=== PATIENT | female | born 1980 | race African-American/Black ===

== ENCOUNTER 2017-09-20 21:31 | Emergency (ER) | payer OTHER ==
[~2017-09-20] VITALS: Ht 157.5 cm; Wt 71.6 kg
[~2017-09-20 21:31] MED LIST: BENTYL20 MG PO; KEFLEX500 MG PO; NOHOMEMEDS
[2017-09-20 22:21] LABS: HEMATOCRIT 30.7 % (36.0-46.0); HEMOGLOBIN 9.4 G/DL (11.9-15.5); MCH 23.4 PG (29.0-34.0); MCHC 30.6 G/DL (30.0-36.0); MCV 76.4 FL (83-99); PLATELET COUNT 286 K/uL (156-360); RBC DIS.WIDTH-CV 17.2 % (11.8-14.6); RBC DIS.WIDTH-SD 47.8 % (39-53); RED BLOOD COUNT 4.02 M/uL (3.80-5.20)
[2017-09-20 22:36] LABS: CHLORIDE 108 mEq/L (99-109); SODIUM 140 mEq/L (136-147)
[2017-09-20 22:37] LABS: GLUCOSE 98 mg/dL (70-99)
[2017-09-20 22:41] LABS: CREATININE 0.7 mg/dL (0.6-1.3); GFR ESTIMATE (CALCULATED) > 59 mL/min/
[2017-09-20 22:42] LABS: UREA NITROGEN (BUN) 13 mg/dL (9-23)
[2017-09-20 22:46] LABS: TROP-I INTERPRETATION NEGATIVE; TROPONIN-I < 0.01 ng/mL (0.0-0.30)
[2017-09-20 22:52] LABS: D-DIMER ELISA < 150.00 ng/mLDDU (<230)
[2017-09-20] MEDS ORDERED: ATARAX,VISTARIL50 MG PO (23:39)
[2017-09-20 23:48] VITALS: BP 111/79
== END 2017-09-20 23:49 | disposition home or self-care (01) ==
LOC: EME 21:31
PROVIDERS: Physician Assistant
DX: F41.9 Anxiety disorder, unspecified (principal); J45.909 Unspecified asthma, uncomplicated
CPT/HCPCS: 71046; 80048; 84484; 85027; 85379; 93005; 99281; 99284